=== PATIENT | male | born 1960 | race Caucasian/White ===

== ENCOUNTER 2022-01-22 00:24 | Emergency (ER) | payer BC, SELFPAY ==
[2022-01-22] VITALS (19 sets, daily range): BP systolic 147–182; BP diastolic 86–105; PULSE 95–115; RESP 12–26; TEMP 36.2; O2SAT 98
--- NOTE | 2022-01-22 00:29 | ECG_ITS ---
Measurements Intervals [place] Rate: 102 P: 55 MD: 223 QRS: 19 QRSD: 92 T: 36 QT: 315 QTc: 412 Interpretive Statements SINUS TACHYCARDIA WITH FIRST DEGREE AV BLOCK POSSIBLE LEFT ATRIAL ENLARGEMENT [-0.1mV P WAVE IN V1/V2] LOW QRS VOLTAGE IN PRECORDIAL LEADS [QRS DEFLECTION < 1.0 mV IN CHEST LEADS] POSSIBLE RIGHT VENTRICULAR CONDUCTION DELAY [RSR (QR) IN V1/V2] ABNORMAL ECG NO PREVIOUS ECG AVAILABLE FOR COMPARISON Electronically Signed On 01-23-2022 13:50:03 CDT by Tretn Valadez M.D.
[2022-01-22 00:50] LABS: Basophils Percent Auto 0.2 % (0.2-1.2); Eosinophils Absolute Auto 0.1 K/mm3 (0-0.3); Eosinophils Percent Auto 0.4 % (0-4.4); Hematocrit 45.8 % (42.0-52.0); Hemoglobin 15.3 g/dL (14.0-18.0); Immature Granulocyte Percent A 0.5 % (0-0.5); Lymphocytes Absolute Auto 0.67 K/mm3 (0.9-3.2); Lymphocytes Percent Auto 3.3 % (18.3-44.2); Mean Corpuscular HGB Conc 33.4 g/dl (32-36); Mean Corpuscular Hemoglobin 30.7 pg (26-34); Mean Corpuscular Volume 91.8 fl (80-100); Mean Platelet Volume 9.3 fl (7.4-10.4); Monocytes Absolute Auto 0.6 K/mm3 (0.1-0.6); Monocytes Percent Auto 2.7 % (2.6-8.5); Neutrophils Absolute Auto 19.1 K/mm3 (1.3-6.7); Neutrophils Percent Auto 92.9 % (45.5-73.1); Platelet Count Result 204 k/mm3 (150-375); Red Blood Count 4.99 M/mm3 (4.6-6.20); Red Cell Distribution Width 11.9 % (11.5-14.5); White Blood Count 20.6 K/mm3 (4.5-10.0)
[2022-01-22 01:03] LABS: Lactic Acid Reflex 1.2 mmol/L (0.7-2.1)
[2022-01-22 01:04] LABS: Alanine Aminotransferase 22 U/L (4-50); Albumin Level 4.3 g/dL (3.5-5.1); Alkaline Phosphatase 91 U/L (38-126); Anion Gap 3 mmol/L (8-16); Aspartate Amino Transferase 32 U/L (17-59); Blood Urea Nitrogen 11 mg/dL (9-20); Calcium 8.7 mg/dL (8.4-10.2); Carbon Dioxide 31 mmol/L (22-30); Chloride 98 mmol/L (98-107); Estimated CRCL calculation 75 ml/min; Estimated Glomerular Filt Rate > 60; Glucose 136 mg/dL (65-110); Magnesium 1.9 mg/dL (1.6-2.3); Sodium 132 mmol/L (137-145)
--- NOTE | 2022-01-22 01:09 | ED.GENADULT ---
HPI - General Adult General Chief complaint: Syncope Stated complaint: possible syncopal episode Time Seen by Provider: 01/22/22 00:33 Source: patient, family, EMS and RN notes reviewed Mode of arrival: EMS Limitations: no limitations History of Present Illness HPI narrative: 61-year-old male presents to the emerge department for evaluation after having a near syncopal episode. Patient states today at 4 PM he started having onset of diarrhea. Patient states he did have multiple episodes of diarrhea throughout the day. Patient states that 10 PM he went to bed. Shortly after being in bed he woke up to use the restroom. While walking to the restroom he had onset of worsening nausea diaphoresis and dizziness. Patient felt like he was going to pass out and did fall to the ground. Patient states he was aware and is unsure if he had total loss of consciousness. Patient was on the ground for approximately 1 minute and was assisted to the couch. While sitting on the couch patient did have onset of additional nausea and vomiting and also had another brief syncopal episode. Patient denies any prior cardiac history. Patient denies any associated chest pain or shortness of breath. Related Data Allergies Allergy/AdvReac Type Severity Reaction Status Date / Time No Known Allergies Allergy Mild Verified 01/22/22 00:34 Review of Systems Review of Systems: CONSTITUTIONAL: Generalized fatigue EYES: Denies visual changes, redness, or discharge. ENT: Denies rhinorrhea, congestion, sore throat, or otalgia. CARDIOVASCULAR: Denies chest pain, palpitations, or edema. RESPIRATORY: Denies cough or dyspnea. GASTROINTESTINAL: Nausea vomiting diarrhea GENITOURINARY: Denies dysuria or hematuria. SKIN: Denies rash or itching. MUSCULOSKELETAL: Denies back pain, joint pain, or myalgia. NEUROLOGIC: Near syncope All systems reviewed & are unremarkable except as noted in HPI and below PMFSH Past Medical History Medical History (Updated 01/22/22 @ 03:32 by Douglas Gasca MD) Prostate cancer Social History Social History Smoking status: Former smoker Smoking end date: 10/15/12 Alcohol intake: current Exam Narrative: APPEARANCE: Well appearing, no pain, no distress, well-nourished. HEAD: normocephalic, atraumatic. EYES: PERRLA/EOMI, conjunctivae clear. NOSE: Normal no drainage EARS:TMS clear with good light reflex. THROAT: Pharynx clear, no exudate. NECK: Supple. No adenopathy, no masses. RESPIRATORY: Airway patent, respirations nonlabored. Clear to auscultation bilaterally, no rales, rhonchi, wheezing. CARDIOVASCULAR: Regular rate and rhythm without murmurs rubs or gallops. ABDOMINAL: Soft, nontender, nondistended, normal bowel sounds MUSCULOSKELETAL: Moves all extremities. Strength/ROM intact, No edema, No calf tenderness. NEURO: Alert. Cranial nerves II through XII intact. Grossly intact SKIN: Warm, dry. Normal Color Course Course Emergency Course: Patient's labs are within normal limits. Patient was resuscitated with 2 L of normal saline. Patient has no cardiac history and patient does present a clinical picture consistent with orthostatic hypotension secondary to his diarrhea. After resuscitation patient was able to ambulate in the emergency department multiple times without issues. Patient had no further emesis or diarrhea while in the ED. Patient was discharged with Zofran for home. Both patient and family were updated on the results of the work-up and plan for treatment at home. They are also educated on reasons to return to the emerge department. All questions concerns were addressed. Vital Signs Vital signs: Vital Signs Temperature 97.2 F L 01/22/22 00:25 Pulse Rate 102 H 01/22/22 00:25 Respiratory Rate 16 01/22/22 00:25 Blood Pressure 181/95 H 01/22/22 00:25 Pulse Oximetry 98 01/22/22 00:25 Temperature 97.2 F L 01/22/22 00:25 Pulse Rate 110 H 01/22/22 03:16 Respiratory Rate 21 H 01/22/22 03:16
[2022-01-22] MEDS: SODIUM CHLORIDE 0.9% IV 1,000 ML 999 ML IV CONT ×2 (01:14→02:09)
[2022-01-22 01:18] LABS: NT Pro B Type Natriuretic Pept 37 pg/mL (5-100); Troponin I < 0.012 ng/mL (0.000-0.034)
[2022-01-22 01:51] LABS: Add Urine Microscopic? YES; Appearance Urine Clear (Clear); Bilirubin Urine Negative (Negative); Blood Urine Negative (Negative); Color Urine Yellow (Yellow); Glucose Urine UA Negative (Negative); Ketones Urine 1+ mg/dL (Negative); Leukocyte Esterase Ur Negative LEU/UL (Negative); Mucus Urine Rare /lpf; Nitrate Urine Negative (Negative); Protein Urine Negative (Negative); RBC Urine 0-2 /hpf (0-2); Specific Grav Ur 1.013 (1.001-1.035); Urobilinogen Urine Negative mg/dL (<2.0); WBC Urine 0-3 /hpf
== END 2022-01-22 03:45 | disposition home or self-care (01) ==
PROVIDERS: Emergency Provider Emergency Medicine; PCP Family Medicine
DX: I95.1 Orthostatic hypotension (principal); R11.2 Nausea with vomiting, unspecified; R19.7 Diarrhea, unspecified; Z85.46 Personal history of malignant neoplasm of prostate; Z87.891 Personal history of nicotine dependence
CPT/HCPCS: 36415; 80053; 81001; 83605; 83735; 83880; 84484; 85025; 93005; 96360; 96361; 99284; J7030